=== PATIENT | female | born 1965 | race Caucasian/White ===

== ENCOUNTER 2017-09-08 20:12 | Emergency (ER) | payer OTHER ==
[~2017-09-08] VITALS: Ht 172.7 cm; Wt 104.3 kg
[~2017-09-08 20:12] MED LIST: AUGMENTIN 875-1 EACH PO; NORCO 5-325 TA1 EACH PO; ZOFRAN ODT4 MG PO
[2017-09-08 20:14] VITALS: BP 162/70
== END 2017-09-09 07:19 | disposition home or self-care (01) ==
LOC: ER 20:12
DX: S80.11XA Contusion of right lower leg, initial encounter (principal); L43.9 Lichen planus, unspecified; X58.XXXA Exposure to other specified factors, initial encounter; Y93.89 Activity, other specified; Y92.89 Other specified places as the place of occurrence of the external cause; Y99.8 Other external cause status